=== PATIENT | female | born 1960 | race Caucasian/White ===

== ENCOUNTER 2019-07-22 22:28 | Emergency (ER) | payer OTHER ==
[~2019-07-22] VITALS: Ht 167.6 cm; Wt 118.4 kg
[2019-07-22] MEDS ORDERED: LORAZEPAM INJ 2 MG/ML VIAL IV STA (22:49)
[2019-07-22] MEDS ORDERED: LORAZEPAM INJ 2 MG/ML VIAL ONE (23:02)
--- NOTE | 2019-07-22 23:32 | Diagnostic Imaging Report ---
EXAMINATION: CXR 2 VIEW - HOPD INDICATION: ^[id number] ^2300 COMPARISON: None FINDINGS: PA and lateral views TUBES and LINES: Dual-lead left chest wall cardiac device in place with distal leads projecting over right atrium and right ventricle. LUNGS: Lungs are well inflated. There is no evidence of pneumonia or pulmonary edema. PLEURA: No pleural effusion or pneumothorax. HEART AND MEDIASTINUM: The cardiomediastinal silhouette is unremarkable. BONES AND SOFT TISSUES: No acute osseous lesion. Soft tissues are unremarkable. UPPER ABDOMEN: No free air under the diaphragm. IMPRESSION: No acute thoracic abnormality. Signed by: Dr. Jose Carlos Sena MD on 07/22/2019 11:28 PM
--- OUTSIDE RECORDS SUMMARY | 2019-07-23 14:09 | XMS REPORT ---
[facility] Address Unknown Phone Unavailable Care Team Providers Care It Service Continuity Supervisor Name Role Phone HETAL ABDI Unavailable Unavailable Problems This patient has no known problems. Allergies, Adverse Reactions, Alerts This patient has no known allergies or adverse reactions. Medications This patient has no known medications. Results Test Description Test Time Test Comments Text Results Atomic Results Result Comments CXR 2 VIEW - HOPD 2019-07-22 23:26:00 [place] [address] Patient Name: NATALIE CRUZ MR #: [id number] : 1960 Age/Sex: 59/F Req #: [id number] [facility] Physician: Ordered by: HETAL ABDI MD Report #: [id number] Location: [facility] Room/Bed: Procedure: [id number] HOPD/CXR 2 VIEW - HOPD Exam Date: 07/22/19 Exam Time: 0 REPORT STATUS: Signed EXAMINATION: CXR 2 VIEW - HOPD INDICATION: [id number] COMPARISON: None FINDINGS: PA and lateral views TUBES and LINES: Dual-lead left chest wall cardiac device in place with distal leads projecting over right atrium and right ventricle. LUNGS: Lungs are well inflated. There is no evidence of pneumonia or pulmonary edema. PLEURA: No pleural effusion or pneumothorax. HEART AND MEDIASTINUM: The cardiomediastinal silhouette is unremarkable. BONES AND SOFT TISSUES: No acute osseous lesion. Soft tissues are unremarkable. UPPER ABDOMEN: No free air under the diaphragm. IMPRESSION: No acute thoracic abnormality. Signed by: Dr. Jose Carlos Sena MD on 07/22/2019 11:28 PM Dictated By: JOSE CARLOS SENA MD 27 Transcribed By: ESTEBAN on 07/22/192327 COPY TO: HETAL ABDI MD
== END 2019-07-22 23:46 | disposition home or self-care (01) ==
LOC: FSED 22:28
DX: F41.1 Generalized anxiety disorder (principal); I10 Essential (primary) hypertension; Z95.0 Presence of cardiac pacemaker
CPT/HCPCS: 71046; 80053; 82553; 84484; 85025; 93005; 99283; J2060